=== PATIENT | female | born 2000 | race African-American/Black ===

== ENCOUNTER 2022-10-06 15:25 | Emergency (ER) | payer OTHER, SELFPAY | END 2022-10-06 16:40 | disposition home or self-care (01) | LOC: MADERS 15:25 | DX: J02.9 Acute pharyngitis, unspecified (principal) | CPT/HCPCS: 87081; 87430; 99283 ==

== ENCOUNTER 2022-11-09 12:14 | Emergency (ER) | payer OTHER ==
[2022-11-09 14:05] LABS: SARS-CoV-2 NAA Rapid Test Not Detected (NotDetected)
== END 2022-11-09 13:30 | disposition home or self-care (01) ==
LOC: MADERS 12:14
DX: O99.891 Other specified diseases and conditions complicating pregnancy (principal); R09.81 Nasal congestion; Z20.822 Contact with and (suspected) exposure to COVID-19; Z3A.12 12 weeks gestation of pregnancy
CPT/HCPCS: 99284; U0002